=== PATIENT | male | born 1980 | race Hispanic/Latino ===

== ENCOUNTER → 2019-05-02 | Outpatient (CLI) | payer BC ==
--- NOTE | 2019-05-02 15:51 | Diagnostic Imaging Report ---
HISTORY : Abdominal pain COMPARISON : None COMMENT : Complete ultrasound examination of the abdomen was performed. The liver is normal in size measuring 4.7 cm in length along the right midclavicular line and homogeneous in echo-texture without evidence of a focal mass. The gallbladder contains echogenic sludge. No gallstones are identified. There is no gallbladder wall thickening or pericholecystic fluid.. The biliary tract is within normal limits with the common bile duct measuring 4 mm in maximum diameter. The visualized portions of the pancreas are within normal limits. The spleen is normal in size and echo-texture measuring 12.0 cm. The right kidney measures 11.6 cm and the left kidney 0.6 cm in maximum size. There is no evidence of cysts, masses, stones or hydronephrosis. The portal vein measures to a maximum of 0.7 cm in diameter. There is no ascites or pleural effusion. The visualized inferior vena cava, hepatic veins and abdominal aorta are within normal limits. IMPRESSION : Gallbladder sludge. No evidence of cholelithiasis or acute cholecystitis. Signed by: Min Simmons MD on 05/02/2019 3:48 PM
== END ==
LOC: US 14:52
PROVIDERS: ATTEND Family Medicine
DX: R10.9 Unspecified abdominal pain (principal)
CPT/HCPCS: 76700